=== PATIENT | female | born 1975 | race Caucasian/White ===

== ENCOUNTER → 2019-04-11 | Outpatient (CLI) | payer OTHER ==
--- NOTE | 2019-04-11 13:42 | KCIC ---
EXAM: Bilateral screening mammogram. HISTORY: 44-year-old female presents for screening mammography. TECHNIQUE: Full-field digital craniocaudal and mediolateral oblique views of both breasts are obtained for evaluation. Computer aided detection with [employer] software version 9.3 was applied. COMPARISON: None. This is baseline mammogram. BREAST PARENCHYMAL DENSITY: Level D - Extremely dense. FINDINGS: There is nodular asymmetry within the posterior superior aspect of the right breast in the mediolateral oblique projection. This may correspond with similar nodular asymmetry at the 12:00 position in the craniocaudal projection. There are few punctate benign calcifications. No architectural distortion is seen. IMPRESSION: BI-RADS Category 0: Incomplete. Additional imaging needed. RECOMMENDATION: Further evaluation with a full field true lateral view and spot compression views of the right breast to assess nodular asymmetry at the posterior 12:00 position is recommended. Sonographic imaging can also be performed if deemed indicated based on additional mammographic findings. If your mammogram demonstrates that you have dense breast tissue, which could hide abnormalities, and if you have other risk factors for breast cancer that have been identified, you might benefit from supplemental screening tests that may be suggested by your ordering physician. Dense breast tissue, in and of itself, is a relatively common condition. This information is not provided to cause undue concern, but rather to raise your awareness and to promote discussion with your physician regarding the presence of other risk factors, in addition to dense breast tissue. A report of your mammography results will be sent to you and your physician. You should contact your physician if you have any questions or concerns regarding this report. Mammography is a sensitive method for finding small breast cancers, but it does not detect them all and is not a substitute for careful clinical examination. A negative mammogram does not negate a clinically suspicious finding and should not result in delay in biopsying a clinically suspicious abnormality. PQRS compliance statement - Patient information was entered into a reminder system with a target due date for the next mammogram. "Our facility is accredited by the [employer] Mammography [employer]." Electronically signed by: Terrie Moreno MD (04/11/2019 1:39 PM) [id number]
== END ==
LOC: KCIC MAMMO 11:38
PROVIDERS: ATTEND Obstetrics & Gynecology
DX: Z12.31 Encounter for screening mammogram for malignant neoplasm of breast (principal); N63.10 Unspecified lump in the right breast, unspecified quadrant
CPT/HCPCS: 77067

== ENCOUNTER → 2019-04-13 | Outpatient (CLI) | payer OTHER ==
--- NOTE | 2019-04-13 14:16 | KCIC ---
EXAM: Right breast diagnostic mammogram; right breast sonogram. HISTORY: 44-year-old female presents for evaluation of nodularity and nodular asymmetry within the right breast demonstrated on a screening mammogram dated 04/11/2019. TECHNIQUE:. The true lateral and spot compression views of the right breast are obtained. Sonographic imaging of the right breast targeted to the site of mammographic nodular asymmetry was also performed. COMPARISON: 04/11/2019 BREAST PARENCHYMAL DENSITY: Level D - Extremely dense. FINDINGS: There is persistent nodularity within the posterior superior right breast with additional mammographic views. No convincing architectural distortion or suspicious calcification is seen. Sonographic imaging of the right breast demonstrates a benign intramammary lymph node measuring 6 mm at the 10:00 position 7 cm from the nipple. There is no suspicious sonographic finding. IMPRESSION: 1. Small axillary tail lymph node within the right breast corresponding with the site of persistent mammographic nodularity. There is adjacent asymmetry which is likely due to summation artifact. No suspicious sonographic lesion is seen in this location. 2. BI-RADS Category 3: Probably benign finding(s). Precautionary short term follow up with a diagnostic right breast mammogram in 6 months is recommended. If your mammogram demonstrates that you have dense breast tissue, which could hide abnormalities, and if you have other risk factors for breast cancer that have been identified, you might benefit from supplemental screening tests that may be suggested by your ordering physician. Dense breast tissue, in and of itself, is a relatively common condition. This information is not provided to cause undue concern, but rather to raise your awareness and to promote discussion with your physician regarding the presence of other risk factors, in addition to dense breast tissue. A report of your mammography results will be sent to you and your physician. You should contact your physician if you have any questions or concerns regarding this report. Mammography is a sensitive method for finding small breast cancers, but it does not detect them all and is not a substitute for careful clinical examination. A negative mammogram does not negate a clinically suspicious finding and should not result in delay in biopsying a clinically suspicious abnormality. PQRS compliance statement - Patient information was entered into a reminder system with a target due date for the next mammogram. "Our facility is accredited by the [employer] Mammography [employer]." Electronically signed by: Terrie Moreno MD (04/13/2019 2:13 PM) [place] [id number]
== END ==
LOC: KCIC MAMMO 12:41
PROVIDERS: ATTEND Obstetrics & Gynecology
DX: N63.11 Unspecified lump in the right breast, upper outer quadrant (principal); R92.1 Mammographic calcification found on diagnostic imaging of breast
CPT/HCPCS: 76641; 77065

== ENCOUNTER → 2019-09-21 | Outpatient (CLI) | payer OTHER ==
--- NOTE | 2019-09-21 18:41 | KCIC ---
Right breast diagnostic digital mammograms: Reason for examination: Follow-up nodular asymmetry. Comparison is made to previous study dated 04/11/2019 and 04/13/2019. Interpretation was made with the benefit of CAD. The skin and nipple show no abnormalities. No abnormal axillary lymph nodes are seen. The breast parenchyma is extremely dense. (Breast density: Category D.) There continues to be some nodular asymmetry posterior superiorly in the right breast seen only on oblique view. Ultrasound will follow. There are no new dominant masses, suspicious calcifications or architectural distortion. Impression: Nodular asymmetry in the posterior superior right breast seen on oblique view only. Ultrasound to follow. Your patient's mammogram demonstrates that she has dense breast tissue (breast density category C or D), which could hide abnormalities, and if she has other risk factors for breast cancer that have been identified, she might benefit from supplemental screening tests that may be suggested by you as her ordering physician. Dense breast tissue, in and of itself, is a relatively common condition. Therefore, this information is not provided to cause undue concern, but rather to raise your awareness and to promote discussion with your patient regarding the presence of other risk factors, in addition to dense breast tissue. Your patient's mammography results will be sent to her. BI-RAD Category 0: Incomplete. Needs additional imaging evaluation. Right breast ultrasound: Ultrasound examination of the right breast and axilla was performed. At the 10:00 position 7 cm from the nipple, there continues to be a small intramammary lymph node measuring approximately 5.8 mm in greatest dimension which has not changed. At the 12:00 position, there is a small 3.3 mm cystic-appearing lesion. At the 2:00 position 4 cm from the nipple, there is a 7 mm cyst. No suspicious nodules are seen. No abnormal appearing lymph nodes are seen in the right axilla. IMPRESSION: Small intramammary lymph node at the 10:00 position. Benign-appearing cysts at the 12:00 and 2:00 positions. Recommend ultrasound follow-up in 6 months at the time of bilateral mammograms. BI-RADS Category 3: Probably Benign. "Our facility is accredited by the [employer] Mammography [employer]." This patient's information has been entered into a reminder system for the patient to be notified with the results of her examination and a target date for the next mammogram. Electronically signed by: Angelica Melton MD (09/21/2019 6:38 PM) [id number]
== END | disposition home or self-care (01) ==
LOC: KCIC MAMMO 12:41
PROVIDERS: ATTEND Obstetrics & Gynecology
DX: R92.2 Inconclusive mammogram (principal); N63.11 Unspecified lump in the right breast, upper outer quadrant; N60.01 Solitary cyst of right breast
CPT/HCPCS: 76641; 77065